=== PATIENT | male | born 1950 | race Caucasian/White ===

== ENCOUNTER 2018-09-12 05:03 | Emergency (ER) | payer MEDICARE, BC ==
--- NOTE | 2018-09-12 05:17 | Emergency Department Record ---
History of Present Illness - General Chief complaint: Nosebleed/epistaxis Stated complaint: NOSE BLEED Time Seen by Provider: 09/12/18 05:13 Source: Patient Mode of Arrival: Ambulatory Limitations: No limitations - History of Present Illness Initial comments: 68 yo male presents to ED for evaluation of bleeding from the right nare that began approximately 45 minutes ago. Patient denies trauma or injury, and denies the use of anticoagulation medications. Patient reports similar symptoms previously. has seen Dr. Bennett for similar bleeding previously. complaint: Epistaxis Onset/Timin -: Minutes(s) Severity: Moderate Consistency: Constant Improves with: None Worsens with: None - Related Data Home Medications Medication Instructions Recorded Confirmed Last Taken Aspirin [Ecotrin] 81 mg PO BID 09/12/18 09/12/18 09/11/18 Metformin HCl 1,000 mg PO QHS 09/12/18 09/12/18 09/11/18 Metformin HCl 500 mg PO QAM 09/12/18 09/12/18 09/11/18 Roscoe-3 Fatty Acids [Roscoe-3] 1,000 mg PO DAILY 09/12/18 09/12/18 09/11/18 Quinapril HCl [Accupril] 10 mg PO DAILY 09/12/18 09/12/18 09/11/18 Sertraline HCl [Zoloft] 100 mg PO DAILY 09/12/18 09/12/18 09/11/18 Sitagliptin Phosphate [Januvia] 100 mg PO DAILY 09/12/18 09/12/18 09/11/18 Previous Rx's Medication Instructions Recorded Cephalexin [Keflex] 500 mg PO TID #21 cap 09/12/18 Allergies Allergy/AdvReac Type Severity Reaction Status Date / Time aspirin AdvReac Mild NAUSEA Verified 11/07/14 16:08 codeine AdvReac Mild NAUSEA Unverified 11/07/14 16:08 Review of Systems Constitutional: Denies: Chills, Fever, Malaise, Night sweats Eyes: Denies: Eye discharge, Eye pain ENT: Reports: Epistaxis. Denies: Congestion, Ear pain Respiratory: Denies: Cough, Dyspnea Cardiovascular: Denies: Chest pain, Dyspnea on exertion Endocrine: Denies: Fatigue, Heat or cold intolerance Gastrointestinal: Denies: Abdominal pain, Nausea, Vomiting Genitourinary: Denies: Incontinence, Retention Musculoskeletal: Denies: Arthralgia, Back pain Skin: Denies: Bruising, Change in color Neurological: Denies: Abnormal gait, Confusion, Headache, Seizure Psychiatric: Denies: Anxiety Hematological/Lymphatic: Denies: Anemia, Blood Clots Past Medical History - SOCIAL HISTORY Smoking Status: Former smoker Alcohol Use: None Drug Use: None - RESPIRATORY Hx Respiratory Disorders: No - CARDIOVASCULAR Hx Cardio Disorders: Yes Hx Hypertension: Yes - NEURO Hx Neuro Disorders: No - GI Hx GI Disorders: Yes Hx of Polyps: Yes - Hx Genitourinary Disorders: No - ENDOCRINE Hx Endocrine Disorders: Yes - MUSCULOSKELETAL Hx Musculoskeletal Disorders: Yes Hx Arthritis: Yes - PSYCH Hx Psych Problems: Yes Hx Anxiety: Yes Hx Depression: Yes - HEMATOLOGY/ONCOLOGY Hx Hematology/Oncology Disorders: No Family Medical History Any Significant Family History?: Yes Hx Alcohol Use: Father Hx Heart Disease: Father *Heart Comment: [place] @ 49 Hx Resp Disorders: Mother Physical Exam - General General Appearance: Alert, Oriented x3, Cooperative, Moderate distress Limitations: No limitations - Head Head exam: Atraumatic, Normocephalic, Normal inspection Head exam detail: negative: Abrasion, Contusion, Rosales's sign, General tenderness, Hematoma, Laceration - Eye Eye exam: Normal appearance. negative: Conjunctival injection, Periorbital swelling, Periorbital tenderness, Scleral icterus - ENT Ear exam: negative: Auricular hematoma, Auricular trauma Nasal Exam: Active bleeding. negative: Discharge, Dried blood, Foreign body Mouth exam: negative: Drooling, Laceration, Muffled voice, Tongue elevation - Neck Neck exam: Normal inspection. negative: Meningismus, Tenderness - Respiratory Respiratory exam: Normal lung sounds bilaterally. negative: Rales, Respiratory distress, Rhonchi, Stridor - Cardiovascular Cardiovascular Exam: Normal rhythm, Normal heart sounds, Tachycardia - GI/Abdominal GI/Abdominal exam: Soft. negative: Rebound, Rigid, Tenderness - Rectal Rectal exam: Deferred - exam: Deferred - Extremities Extremities exam: Normal inspection. negative: Pedal edema, Tenderness - Back Back exam: Denies: CVA tenderness (R), CVA tenderness (L) - Neurological Neurological exam: Alert, Normal gait, Oriented X3 - Psychiatric Psychiatric exam: Normal affect, Normal mood - Skin Skin exam: Normal color. negative: Abrasion Type of lesion: negative: abrasion Course Vital Signs 09/12/18 05:08 Temperature 97.7 F Pulse Rate [ 127 H Pulse Ox Probe] Respiratory 22 Rate Blood Pressure 185/108 [Left Arm] Pulse Ox 93 L - Reevaluation(s) Reevaluation #1: 09/12/18 05:44 Laboratory studies were reviewed, Hgb 16.9. Rhino rocket placed into the right nare with Transexemic acid to stop patient's bleeding symptoms, TLE-soaked cotton balls placed left nare. Will reasssess in 15 minutes. Reevaluation #2: 09/12/18 06:10 TLE-soaked cotton balls removed, soft Rhino-rocket placed into the left nare. Will continue to observe in ED for re-bleeding. Reevaluation #3: 09/12/18 06:30 Patient was reassessed, no further bleeding noted. Patient is resting comfortably and appears stable for discharge at this time. Procedure Note: Rhino balloon was inserted into the right nare with lubricating jelly, inflated with 5 mL water, 5 mL TXA was injected around the packing to control bleeding symptoms. Packing to result in cessation of bleeding, no complications. Procedure Note #2: Rhino rocket was trimmed, placed into the left nare with lubricating jelly without complications. Device was softened using TLE solution without complications. No re-bleeding noted in re-examination. Medical Decision Making - Lab Data Result diagrams: 09/12/18 05:15 Disposition Disposition: Discharge Clinical Impression: Epistaxis Disposition: Home, Self-Care Condition: (2) Stable Instructions: Nosebleed (ED) Additional Instructions: Return to ED if your symptoms worsen or if you have any concerns. Keflex as directed. Follow-up with Dr. Bennett in 3-5 days as directed. Prescriptions: Cephalexin [Keflex] 500 mg PO TID #21 cap Referrals: ERIS BENNETT [DOCTOR OF OSTEOPATH] - Forms: Patient Portal Access Time of Disposition: 06:31 Quality - Quality Measures Quality Measures: N/A - Blood Pressure Screening Does Patient Have Any of the Following: Active Dx of HTN Blood Pressure Classification: Hypertensive Reading Systolic Measurement: 185 Diastolic Measurement: 108 Screening for High Blood Pressure: Patient Exclusion, Hx of HTN [G9744]
[2018-09-12 05:26] LABS: BASO % 0.9 % (0-6); EOS % 3.2 % (0-6); HEMATOCRIT 47.5 % (42.0-52.0); HEMOGLOBIN 16.9 gm/dl (14.0-18.0); LYMPH % 23.6 % (16-45); MEAN CELL VOLUME 82.6 fl (81-97); MEAN CORPUSCULAR HGB CONC 35.6 g/dl (32-36); MEAN PLATELET VOLUME 8.3 fl (7.4-10.4); MONO % 10.3 % (0-9); PLATELET COUNT 260 K/uL (130-400); RED BLOOD COUNT 5.75 M/uL (4.40-5.70); RED CELL DISTRIBUTION WIDTH 13.8 % (11.5-14.5); WHITE BLOOD COUNT W/O DIFF 7.9 K/uL (4.2-12.2)
[2018-09-12 05:27] LABS: MEAN CORPUSCULAR HEMOGLOBIN 29.3 pg (27-33)
[2018-09-12] MEDS ORDERED: TRANEXAMIC ACID 1,000 MG/10 ML ML TOP ONE (05:29)
== END 2018-09-12 06:35 | disposition home or self-care (01) ==
LOC: ER 05:03
DX: R04.0 Epistaxis (principal); I10 Essential (primary) hypertension; Z87.891 Personal history of nicotine dependence
CPT/HCPCS: 30903 ×2; 99282; 99284; 85025; J3490

== ENCOUNTER 2018-09-14 19:31 | Emergency (ER) | payer MEDICARE, BC ==
--- NOTE | 2018-09-14 19:48 | Emergency Department Record ---
History of Present Illness - General Chief Complaint: Recheck - Other Stated Complaint: RECHECK Time Seen by Provider: 09/14/18 19:42 Source: Patient Mode of arrival: Ambulatory Limitations: No limitations - History of Present Illness Initial Comments: 68 yo female presents to ED for evaluation following recent nasal packing for epistaxis. Patient reports that his anterior pack has started to come out, reports that he is scheduled to have his packing removed tomorrow morning with Dr. Shin anyhow. Patient reports that he has been taking antibiotics as prescribed, denies other symptoms following packing placement. MD Complaint: Other Onset/Timin -: Hour(s) Initial Visit For: Other Returns Today for: Other Symptoms Since Prior Visit: No new symptoms Associated Symptoms: None - Related Data Previous Rx's Medication Instructions Recorded Cephalexin [Keflex] 500 mg PO TID #21 cap 09/12/18 Allergies Allergy/AdvReac Type Severity Reaction Status Date / Time aspirin AdvReac Mild NAUSEA Verified 11/07/14 16:08 codeine AdvReac Mild NAUSEA Verified 09/14/18 19:34 Travel Screening - Travel/Exposure Within Last 30 Days Have you traveled within the last 30 days?: No - Travel Symptoms Symptom Screening: None Review of Systems Constitutional: Denies: Chills, Fever, Malaise, Night sweats Eyes: Denies: Eye discharge, Eye pain ENT: Reports: Epistaxis. Denies: Congestion Respiratory: Denies: Cough, Dyspnea Cardiovascular: Denies: Chest pain, Dyspnea on exertion Endocrine: Denies: Fatigue, Heat or cold intolerance Gastrointestinal: Denies: Abdominal pain, Nausea, Vomiting Genitourinary: Denies: Incontinence, Retention Musculoskeletal: Denies: Arthralgia, Back pain, Gout, Joint swelling Skin: Denies: Bruising, Change in color Neurological: Denies: Abnormal gait, Confusion, Headache, Seizure Psychiatric: Denies: Anxiety Hematological/Lymphatic: Denies: Anemia, Blood Clots Past Medical History - SOCIAL HISTORY Smoking Status: Former smoker - RESPIRATORY Hx Respiratory Disorders: No - CARDIOVASCULAR Hx Cardio Disorders: Yes Hx Hypertension: Yes - NEURO Hx Neuro Disorders: No - GI Hx GI Disorders: Yes Hx of Polyps: Yes - Hx Genitourinary Disorders: No - ENDOCRINE Hx Endocrine Disorders: Yes - MUSCULOSKELETAL Hx Musculoskeletal Disorders: Yes Hx Arthritis: Yes - PSYCH Hx Psych Problems: Yes Hx Anxiety: Yes Hx Depression: Yes - HEMATOLOGY/ONCOLOGY Hx Hematology/Oncology Disorders: No Family Medical History Any Significant Family History?: Yes Hx Alcohol Use: Father Hx Heart Disease: Father *Heart Comment: [place] @ 49 Hx Resp Disorders: Mother Physical Exam - General General Appearance: Alert, Oriented x3, Cooperative, No acute distress Limitations: No limitations - Head Head exam: Atraumatic, Normocephalic, Normal inspection Head exam detail: negative: Abrasion, Contusion, Rosales's sign, General tenderness, Hematoma, Laceration - Eye Eye exam: Normal appearance. negative: Conjunctival injection, Periorbital swelling, Periorbital tenderness, Scleral icterus - ENT Ear exam: negative: Auricular hematoma, Auricular trauma Nasal Exam: Other (Packing present to both nares, right inflatable packing is spontaneously partially extruded.). negative: Active bleeding, Discharge, Dried blood, Foreign body Mouth exam: negative: Drooling, Laceration, Muffled voice, Tongue elevation - Neck Neck exam: Normal inspection. negative: Meningismus, Tenderness - Respiratory Respiratory exam: Normal lung sounds bilaterally. negative: Rales, Respiratory distress, Rhonchi, Stridor - Cardiovascular Cardiovascular Exam: Regular rate, Normal rhythm, Normal heart sounds - GI/Abdominal GI/Abdominal exam: Soft. negative: Rebound, Rigid, Tenderness - Rectal Rectal exam: Deferred - exam: Deferred - Extremities Extremities exam: Normal inspection. negative: Pedal edema, Tenderness - Back Back exam: Denies: CVA tenderness (R), CVA tenderness (L) - Neurological Neurological exam: Alert, Normal gait, Oriented X3 - Psychiatric Psychiatric exam: Normal affect, Normal mood - Skin Skin exam: Normal color. negative: Abrasion Type of lesion: negative: abrasion Course Vital Signs 09/14/18 19:35 Pulse Rate [ 108 H Pulse Ox Probe] Respiratory 16 Rate Blood Pressure 158/97 [Left Arm] Pulse Ox 95 - Reevaluation(s) Reevaluation #1: 09/14/18 19:46 Following discussion with the patient and his , will remove packing and observe for re-bleeding. Procedure Note: Anterior nasal packing was removed from both nares, no identifiable area as the origin of the bleeding. Will monitor following packing removal for re-bleeding symptoms. Reevaluation #2: 09/14/18 20:08 No re-bleeding on re-examination, patient appears stable for discharge at this time. Disposition Disposition: Discharge Clinical Impression: Encounter for removal of nasal packing Disposition: Home, Self-Care Condition: (2) Stable Instructions: Nosebleed (ED) Additional Instructions: Return to ED if your symptoms worsen or if you have any concerns. Follow-up with your family doctor in 3-5 days as directed. Forms: Patient Portal Access Time of Disposition: 20:09 Quality - Quality Measures Quality Measures: N/A - Blood Pressure Screening Does Patient Have Any of the Following: No Blood Pressure Classification: Hypertensive Reading Systolic Measurement: 158 Diastolic Measurement: 97 Screening for High Blood Pressure: < First Hypertensive BP, F/U Documented > [G8950] First Hypertensive Follow-up Interventions: Referral to alternative/primary care provider.
== END 2018-09-14 20:20 | disposition home or self-care (01) ==
LOC: ER 19:31
DX: Z48.00 Encounter for change or removal of nonsurgical wound dressing (principal); R04.0 Epistaxis; I10 Essential (primary) hypertension; E11.9 Type 2 diabetes mellitus without complications; Z87.891 Personal history of nicotine dependence; Z79.84 Long term (current) use of oral hypoglycemic drugs
CPT/HCPCS: 99282

== ENCOUNTER 2018-10-02 23:08 | Emergency (ER) | payer MEDICARE, BC ==
[2018-10-02] MEDS ORDERED: TOPICAL LIDOCAINE W/ EPI 5 ML TOP ONE (23:43)
[2018-10-03 00:15] LABS: ABSOLUTE NEUTROPHIL COUNT 7.67; BASO % 0.5 % (0-6); EOS % 1.8 % (0-6); GRAN % 77.3 % (47-80); HEMATOCRIT 43.6 % (42.0-52.0); HEMOGLOBIN 15.7 gm/dl (14.0-18.0); LYMPH % 11.9 % (16-45); MEAN CORPUSCULAR HEMOGLOBIN 29.9 pg (27-33); MEAN PLATELET VOLUME 8.4 fl (7.4-10.4); MONO % 8.5 % (0-9); PLATELET COUNT 329 K/uL (130-400); RED BLOOD COUNT 5.25 M/uL (4.40-5.70); RED CELL DISTRIBUTION WIDTH 13.6 % (11.5-14.5); WHITE BLOOD COUNT W/O DIFF 9.9 K/uL (4.2-12.2)
[2018-10-03] MEDS ORDERED: TRANEXAMIC ACID 1,000 MG/10 ML ML TOP ONE (00:29)
[2018-10-03] MEDS ORDERED: AMOXICILLIN/POTASSIUM CLAV 875MG/125MG TABLET PO ONE (04:01)
--- NOTE | 2018-10-03 04:09 | Emergency Department Record ---
History of Present Illness - General Chief complaint: Nosebleed/epistaxis Stated complaint: BLOODY NOSE Time Seen by Provider: 10/02/18 23:42 Source: Patient Mode of Arrival: Ambulatory Limitations: No limitations - History of Present Illness Initial comments: pt has a r sided epistaxis. he has had this in the past and has seen dr lucero. he had one in august and it took txa and multiple packing to get it stopped. complaint: Epistaxis Onset/Timin -: Minutes(s) Location: Nose Context-Epistaxis: Aspirin use, History of similar - Related Data Previous Rx's Medication Instructions Recorded Amoxicillin/Potassium Clav 1 each PO BID #14 tablet 10/03/18 [Augmentin 875Mg/125Mg] Allergies Allergy/AdvReac Type Severity Reaction Status Date / Time aspirin AdvReac Mild NAUSEA Verified 10/02/18 23:41 codeine AdvReac Mild NAUSEA Verified 10/02/18 23:41 Travel Screening - Travel/Exposure Within Last 30 Days Have you traveled within the last 30 days?: No - Travel/Exposure Within Last Year Have you traveled outside the [place] in the last year?: No - Additonal Travel Details Have you been exposed to anyone with a communicable illness?: No - Travel Symptoms Symptom Screening: None Review of Systems Reviewed: No additional complaints except as noted below Constitutional: Reports: As per HPI. Denies: Chills, Fever, Malaise, Night sweats, Weakness, Weight change Eyes: Reports: As per HPI. Denies: Eye discharge, Eye pain, Photophobia, Vision change ENT: Reports: As per HPI, Epistaxis. Denies: Congestion, Dental pain, Ear pain, Hearing loss, Throat pain Respiratory: Reports: As per HPI. Denies: Cough, Dyspnea, Hemoptysis, Stridor, Wheezes Cardiovascular: Reports: As per HPI. Denies: Arrhythmia, Chest pain, Dyspnea on exertion, Edema, Murmurs, Orthopnea, Palpitations, Paroxysmal nocturnal dyspnea, Rheumatic Fever, Syncope Endocrine: Reports: As per HPI. Denies: Fatigue, Heat or cold intolerance, Polydipsia, Polyuria Gastrointestinal: Reports: As per HPI. Denies: Abdominal pain, Constipation, Diarrhea, Hematemesis, Hematochezia, Melena, Nausea, Vomiting Genitourinary: Reports: As per HPI. Denies: Dysuria, Frequency, Hematuria, Incontinence, Retention, Testicular pain, Testicular mass, Urgency Musculoskeletal: Reports: As per HPI. Denies: Arthralgia, Back pain, Gout, Joint swelling, Myalgia, Neck pain Skin: Reports: As per HPI. Denies: Bruising, Change in color, Change in hair/nails, Lesions, Pruritus, Rash Neurological: Reports: As per HPI. Denies: Abnormal gait, Confusion, Headache, Numbness, Paresthesias, Seizure, Tingling, Tremors, Vertigo, Weakness Psychiatric: Reports: As per HPI. Denies: Anxiety, Auditory hallucinations, Depression, Homicidal thoughts, Suicidal thoughts, Visual hallucinations Hematological/Lymphatic: Reports: As per HPI. Denies: Anemia, Blood Clots, Easy bleeding, Easy bruising, Swollen glands Past Medical History - SOCIAL HISTORY Smoking Status: Former smoker Alcohol Use: None Drug Use: None - RESPIRATORY Hx Respiratory Disorders: No - CARDIOVASCULAR Hx Cardio Disorders: Yes Hx Hypertension: Yes - NEURO Hx Neuro Disorders: No - GI Hx GI Disorders: Yes Hx of Polyps: Yes - Hx Genitourinary Disorders: No - ENDOCRINE Hx Endocrine Disorders: Yes - MUSCULOSKELETAL Hx Musculoskeletal Disorders: Yes Hx Arthritis: Yes - PSYCH Hx Psych Problems: Yes Hx Anxiety: Yes Hx Depression: Yes - HEMATOLOGY/ONCOLOGY Hx Hematology/Oncology Disorders: No Family Medical History Any Significant Family History?: No Hx Alcohol Use: Father Hx Heart Disease: Father *Heart Comment: [place] @ 49 Hx Resp Disorders: Mother Physical Exam - General General Appearance: Alert, Oriented x3, Cooperative, Mild distress - Head Head exam: Normal inspection - Eye Eye exam: Normal appearance, PERRL, EOMI Pupils: Normal accommodation - ENT ENT exam: Normal exam, Mucous membranes moist, Normal external ear exam, Normal orophraynx Ear exam: Normal external inspection. negative: External canal tenderness Nasal Exam: Active bleeding, Dried blood. negative: Discharge, Sinus tenderness Mouth exam: Normal external inspection, Tongue normal Teeth exam: Normal inspection. negative: Dental caries Throat exam: Normal inspection. negative: Tonsillar erythema, Tonsillar exudate - Neck Neck exam: Normal inspection, Full ROM. negative: Tenderness - Respiratory Respiratory exam: Normal lung sounds bilaterally. negative: Respiratory distress - Cardiovascular Cardiovascular Exam: Regular rate, Normal rhythm, Normal heart sounds - GI/Abdominal GI/Abdominal exam: Soft, Normal bowel sounds. negative: Tenderness - Rectal Rectal exam: Deferred - exam: Deferred - Extremities Extremities exam: Normal inspection, Full ROM, Normal capillary refill. negative: Tenderness - Back Back exam: Reports: Normal inspection, Full ROM. Denies: Muscle spasm, Rash noted, Tenderness - Neurological Neurological exam: Alert, Normal gait, Oriented X3, Reflexes normal - Psychiatric Psychiatric exam: Normal affect, Normal mood - Skin Skin exam: Dry, Intact, Normal color, Warm Course Vital Signs 10/02/18 10/03/18 23:31 03:18 Pulse Rate [ 118 H 90 Pulse Ox Probe] Respiratory 20 20 Rate Blood Pressure 162/106 157/103 [Left Arm] Pulse Ox 92 L 91 L - Reevaluation(s) Reevaluation #1: 10/03/18 04:05 tle was used then rhino baloons were used w 5ml water used. this was sufficient for l nares but r conts to bleed so balloon was removed and rhino rocket was used w TXA. this appears to have worked. Medical Decision Making - Lab Data Result diagrams: 10/03/18 00:10 Lab Results 10/03/18 Range/Units 00:10 WBC 9.9 (4.2-12.2) K/uL RBC 5.25 (4.40-5.70) M/uL Hgb 15.7 (14.0-18.0) gm/dl Hct 43.6 (42.0-52.0) % MCV 83.0 (81-97) fl MCH 29.9 (27-33) pg MCHC 36.0 (32-36) g/dl RDW 13.6 (11.5-14.5) % Plt Count 329 (130-400) K/uL MPV 8.4 (7.4-10.4) fl Gran % 77.3 (47-80) % Lymphocytes % 11.9 L (16-45) % Monocytes % 8.5 (0-9) % Eosinophils % 1.8 (0-6) % Basophils % 0.5 (0-6) % Absolute Neutrophils 7.67 Disposition Disposition: Discharge Clinical Impression: Epistaxis, recurrent Disposition: Home, Self-Care Condition: (1) Good Instructions: Nosebleed (ED) Additional Instructions: follow up with dr lucero today. return sooner if worse. sleep elevated. no blowing or sneezing. packing stats in 3 days Prescriptions: Amoxicillin/Potassium Clav [Augmentin 875Mg/125Mg] 1 each PO BID #14 tablet Quality - Quality Measures Quality Measures: N/A - Blood Pressure Screening Does Patient Have Any of the Following: No Blood Pressure Classification: Hypertensive Reading Systolic Measurement: 157 Diastolic Measurement: 103 Screening for High Blood Pressure: < First Hypertensive BP, F/U Documented > [G8950] First Hypertensive Follow-up Interventions: Follow-up with rescreen GT 1 day and LT 4 weeks.
== END 2018-10-03 04:25 | disposition home or self-care (01) ==
LOC: ER 23:08
DX: R04.0 Epistaxis (principal); E11.9 Type 2 diabetes mellitus without complications; I10 Essential (primary) hypertension; Z87.891 Personal history of nicotine dependence; Z79.82 Long term (current) use of aspirin; Z79.84 Long term (current) use of oral hypoglycemic drugs
CPT/HCPCS: 30903; 85025; 99283; 99284

== ENCOUNTER 2018-10-07 07:28 | Emergency (ER) | payer MEDICARE, BC ==
--- NOTE | 2018-10-07 07:45 | Emergency Department Record ---
History of Present Illness - General Chief Complaint: Wound, check Stated Complaint: NEEDS NOSE PACKING OUT Time Seen by Provider: 10/07/18 07:31 Source: Patient Mode of arrival: Ambulatory Limitations: No limitations - History of Present Illness Initial Comments: The patient is here due to have his nasal packing removed. He had a nosebleed 5 days ago and was packed at that time. He does have an appointment with Dr. Shin in 3 days. The patient denies any pain or any further bleeding. MD Complaint: Other Onset/Timin -: Days(s) Initial Visit For: Other Returns Today for: Wound recheck Symptoms Since Prior Visit: No new symptoms Associated Symptoms: None - Related Data Previous Rx's Medication Instructions Recorded Amoxicillin/Potassium Clav 1 each PO BID #14 tablet 10/03/18 [Augmentin 875Mg/125Mg] Allergies Allergy/AdvReac Type Severity Reaction Status Date / Time aspirin AdvReac Mild NAUSEA Verified 10/02/18 23:41 codeine AdvReac Mild NAUSEA Verified 10/02/18 23:41 Travel Screening - Travel/Exposure Within Last 30 Days Have you traveled within the last 30 days?: No - Travel/Exposure Within Last Year Have you traveled outside the [place] in the last year?: No - Additonal Travel Details Have you been exposed to anyone with a communicable illness?: No - Travel Symptoms Symptom Screening: None Review of Systems Constitutional: Denies: Chills, Fever Past Medical History - SOCIAL HISTORY Smoking Status: Former smoker - RESPIRATORY Hx Respiratory Disorders: No - CARDIOVASCULAR Hx Cardio Disorders: Yes Hx Hypertension: Yes - NEURO Hx Neuro Disorders: No - GI Hx GI Disorders: Yes Hx of Polyps: Yes - Hx Genitourinary Disorders: No - ENDOCRINE Hx Endocrine Disorders: Yes - MUSCULOSKELETAL Hx Musculoskeletal Disorders: Yes Hx Arthritis: Yes - PSYCH Hx Psych Problems: Yes Hx Anxiety: Yes Hx Depression: Yes - HEMATOLOGY/ONCOLOGY Hx Hematology/Oncology Disorders: No Family Medical History Any Significant Family History?: Yes Hx Alcohol Use: Father Hx Heart Disease: Father *Heart Comment: [place] @ 49 Hx Resp Disorders: Mother Physical Exam - General General Appearance: Alert, Cooperative, No acute distress - Head Head exam: Atraumatic, Normocephalic - Eye Eye exam: Normal appearance, PERRL - ENT Nasal Exam: Dried blood, Other (There are bilateral nasal tampons in place with no further bleeding.) Throat exam: Normal inspection. negative: Tonsillar erythema, Tonsillar exudate - Neck Neck exam: Normal inspection, Full ROM. negative: Tenderness Course Vital Signs 10/07/18 07:29 Temperature 97.7 F Pulse Rate 94 H Respiratory 20 Rate Blood Pressure 157/94 Pulse Ox 96 - Reevaluation(s) Reevaluation #1: The bilateral nasal packings were removed without difficulty. There was no further bleeding. The patient was instructed to keep his appointment with Dr. Shin in 3 days. 10/07/18 07:47 Disposition Disposition: Discharge Clinical Impression: Encounter for removal of nasal packing Disposition: Home, Self-Care Condition: (2) Stable Instructions: Nosebleed (ED) Additional Instructions: Please see Dr. Shin on Tuesday as planned and return to the ER for any bleeding. Forms: Patient Portal Access Time of Disposition: 07:45 Quality - Quality Measures Quality Measures: N/A - Blood Pressure Screening View Details: Yes Does Patient Have Any of the Following: No Blood Pressure Classification: Hypertensive Reading Systolic Measurement: 157 Diastolic Measurement: 94 Screening for High Blood Pressure: < First Hypertensive BP, F/U Documented > [G8950] First Hypertensive Follow-up Interventions: Referral to alternative/primary care provider.
== END 2018-10-07 07:50 | disposition home or self-care (01) ==
LOC: ER 07:28
DX: Z48.00 Encounter for change or removal of nonsurgical wound dressing (principal)
CPT/HCPCS: 99281